=== PATIENT | male | born 1980 | race Caucasian/White ===

== ENCOUNTER → 2019-11-25 | Outpatient (CLI) | payer BC | END | disposition home or self-care (01) | LOC: LAB 13:53 | PROVIDERS: ATTEND Family Medicine | DX: M10.9 Gout, unspecified (principal); Z74.01 Bed confinement status | CPT/HCPCS: 36415; 84550 ==

== ENCOUNTER → 2020-06-18 | Outpatient (CLI) | payer BC ==
--- NOTE | 2020-06-18 10:14 | RAD ---
CT MAXILLOFACIAL WO CONTRAST DATE: 06/18/2020 8:30 AM INDICATION: CHRONIC SINUSITIS OF BOTH MAXILLARY SINUSES . COMPARISON: None. TECHNIQUE: CT images of the paranasal sinuses were obtained without intravenous contrast. Coronal and sagittal reformatted images were performed at a separate workstation and reviewed. One or more of the following dose reduction techniques were utilized: Automated exposure control (AEC), Adjustment of mA and/or kV according to patient size, Use of iterative reconstruction technique such as ASiR, CT scan done according to ALARA and image gently/image wisely FINDINGS: The maxillary, ethmoid, sphenoid, and frontal sinuses are clear. Frontal sinuses are poorly pneumatized. No air-fluid levels. No significant mucoperiosteal thickening. The osteomeatal units are patent. Nasal septum is slightly bowed to the right. The visualized osseous structures are otherwise normal. The visualized orbits and globes are normal. The visualized brain parenchyma is normal in attenuation. IMPRESSION: No evidence of inflammatory sinonasal disease. Electronically signed by: Marvin Garza MD (06/18/2020 10:11 AM) [id number]
== END | disposition home or self-care (01) ==
LOC: CT 08:11
PROVIDERS: ATTEND Family Medicine
DX: J32.0 Chronic maxillary sinusitis (principal)
CPT/HCPCS: 70486